=== PATIENT | female | born 1985 | race Caucasian/White ===

== ENCOUNTER 2017-03-07 10:18 | Emergency (ER) | payer OTHER ==
[2017-03-07 13:18] LABS: URINE BLOOD (Dip) POC Negative (NEGATIVE); URINE GLUCOSE (Dip) POC Negative (NEGATIVE); URINE KETONES (Dip) POC Negative (NEGATIVE); URINE LEUKOCYTE EST (Dip) POC 2+ (NEGATIVE); URINE NITRITE (Dip) POC Negative (NEGATIVE); URINE TOTAL PROTEIN POC Negative (NEGATIVE)
[2017-03-07 14:57] LABS: ADD UMIC YES; UR ASCORBIC ACID NEGATIVE (NEGATIVE); UR BACTERIA FEW /HPF (NONE SEEN); UR BILIRUBIN (Dip) NEGATIVE (NEGATIVE); UR BLOOD (Dip) NEGATIVE (NEGATIVE); UR CLARITY SLIGHTLY CLOUDY (CLEAR); UR COLOR YELLOW (YELLOW); UR GLUCOSE (Dip) NEGATIVE (NEGATIVE); UR KETONES (Dip) NEGATIVE (NEGATIVE); UR LEUKOCYTE ESTERASE (Dip) 3+ Leu/ul (NEGATIVE); UR MUCUS FEW /HPF (NONE SEEN); UR NITRITE (Dip) NEGATIVE (NEGATIVE); UR RBC 3 /HPF (0-5); UR SPECIFIC GRAVITY (Dip) 1.012 (1.003-1.030); UR SQUAMOUS EPITHELIAL CELL FEW /HPF (FEW); UR TOTAL PROTEIN (Dip) NEGATIVE (NEGATIVE); UR UROBILINOGEN (Dip) NEGATIVE (NEGATIVE); UR WBC 12 /HPF (0-5)
== END 2017-03-07 15:20 | disposition home or self-care (01) ==
LOC: FTE 10:18
DX: O23.41 Unspecified infection of urinary tract in pregnancy, first trimester (principal); R30.0 Dysuria; Z3A.01 Less than 8 weeks gestation of pregnancy
CPT/HCPCS: 81001; 81003; 87086; 99283

== ENCOUNTER 2017-05-10 11:20 | Emergency (ER) | payer OTHER ==
[2017-05-10] MEDS: ACETAMINOPHEN 500 MG TAB PO (12:56)
[2017-05-10 13:21] LABS: ADD UMIC NO; UR ASCORBIC ACID NEGATIVE (NEGATIVE); UR BILIRUBIN (Dip) NEGATIVE (NEGATIVE); UR BLOOD (Dip) NEGATIVE (NEGATIVE); UR CLARITY CLEAR (CLEAR); UR COLOR STRAW (YELLOW); UR GLUCOSE (Dip) NEGATIVE (NEGATIVE); UR KETONES (Dip) NEGATIVE (NEGATIVE); UR LEUKOCYTE ESTERASE (Dip) NEGATIVE Leu/ul (NEGATIVE); UR NITRITE (Dip) NEGATIVE (NEGATIVE); UR SPECIFIC GRAVITY (Dip) 1.003 (1.003-1.030); UR TOTAL PROTEIN (Dip) NEGATIVE (NEGATIVE); UR UROBILINOGEN (Dip) NEGATIVE (NEGATIVE)
== END 2017-05-10 14:34 | disposition home or self-care (01) ==
LOC: FTE 11:20
DX: O26.892 Other specified pregnancy related conditions, second trimester (principal); R10.2 Pelvic and perineal pain
CPT/HCPCS: 76805; 81003; 99284-25

== ENCOUNTER 2017-05-19 18:19 | Emergency (ER) | payer OTHER ==
[2017-05-19] MEDS: ACETAMINOPHEN 325 MG TAB PO (21:06)
[2017-05-19 21:21] LABS: ADD MAN DIFF? NO
[2017-05-19 21:23] LABS: WHITE BLOOD COUNT 7.2 10^3/ul (4.8-10.8)
[2017-05-19 21:23] LABS: BASOPHILS % 0.6 % (0.0-2.0); EOSINOPHILS # 0.1 10^3/ul (0.0-0.5); EOSINOPHILS % 1.8 % (0.0-7.0); HEMATOCRIT 34.8 % (37.0-47.0); HEMOGLOBIN 12.5 g/dl (12.0-16.0); LYMPHOCYTES # 1.8 10^3/ul (0.8-2.9); LYMPHOCYTES % 24.9 % (15.0-51.0); MEAN CORPUSCULAR HEMOGLOBIN 32.6 pg (29.0-33.0); MEAN CORPUSCULAR HGB CONC 35.9 g/dl (32.0-37.0); MEAN CORPUSCULAR VOLUME 90.9 fl (82.0-101.0); MEAN PLATELET VOLUME 10.2 fl (7.4-10.4); MONOCYTE # 0.5 10^3/ul (0.3-0.9); MONOCYTES % 7.2 % (0.0-11.0); NEUTROPHIL # 4.6 10^3/ul (1.6-7.5); NEUTROPHILS % 64.5 % (39.0-77.0); PLATELET COUNT 175 10^3/UL (140-415); RED BLOOD COUNT 3.83 10^6/ul (4.20-5.40); RED CELL DISTRIBUTION WIDTH 12.8 % (11.5-14.5)
[2017-05-19 21:27] LABS: ADD UMIC NO; UR ASCORBIC ACID NEGATIVE (NEGATIVE); UR BILIRUBIN (Dip) NEGATIVE (NEGATIVE); UR BLOOD (Dip) NEGATIVE (NEGATIVE); UR CLARITY CLEAR (CLEAR); UR COLOR STRAW (YELLOW); UR GLUCOSE (Dip) NEGATIVE (NEGATIVE); UR KETONES (Dip) NEGATIVE (NEGATIVE); UR LEUKOCYTE ESTERASE (Dip) NEGATIVE Leu/ul (NEGATIVE); UR NITRITE (Dip) NEGATIVE (NEGATIVE); UR SPECIFIC GRAVITY (Dip) 1.006 (1.003-1.030); UR TOTAL PROTEIN (Dip) NEGATIVE (NEGATIVE); UR UROBILINOGEN (Dip) NEGATIVE (NEGATIVE)
[2017-05-19 21:52] LABS: ALANINE AMINOTRANSFERASE 27 IU/L (13-69); ALBUMIN 3.9 g/dl (3.3-4.9); ALBUMIN/GLOBULIN RATIO 1.25; ALKALINE PHOSPHATASE 45 IU/L (42-121); ANION GAP 15 (8-16); ASPARTATE AMINO TRANSFERASE 19 IU/L (15-46); BILIRUBIN,INDIRECT 0.1 mg/dl (0-1.1); BILIRUBIN,TOTAL 0.1 mg/dl (0.2-1.3); BLOOD UREA NITROGEN 8 mg/dl (7-20); CARBON DIOXIDE 25 mmol/L (21-31); CHLORIDE 105 mmol/L (97-110); CREATININE 0.52 mg/dl (0.44-1.00); GLUCOSE 104 mg/dl (70-220); LIPASE 84 U/L (23-300); POTASSIUM 3.6 mmol/L (3.5-5.1); SODIUM 141 mmol/L (135-144)
== END 2017-05-19 23:11 | disposition home or self-care (01) ==
LOC: FTE 18:19
DX: O30.002 Twin pregnancy, unspecified number of placenta and unspecified number of amniotic sacs, second trimester (principal); O44.02 Complete placenta previa NOS or without hemorrhage, second trimester; R10.2 Pelvic and perineal pain; Z3A.17 17 weeks gestation of pregnancy
CPT/HCPCS: 36415; 76805; 80053; 81003; 83690; 84702; 85025; 86900; 86901; 99284-25

== ENCOUNTER 2017-06-08 10:46 | Emergency (ER) | payer OTHER ==
[2017-06-08 12:31] LABS: ADD MAN DIFF? NO
[2017-06-08 12:33] LABS: WHITE BLOOD COUNT 7.8 10^3/ul (4.8-10.8)
[2017-06-08 12:33] LABS: BASOPHILS % 0.3 % (0.0-2.0); EOSINOPHILS # 0.1 10^3/ul (0.0-0.5); EOSINOPHILS % 1.7 % (0.0-7.0); HEMATOCRIT 32.6 % (37.0-47.0); HEMOGLOBIN 11.4 g/dl (12.0-16.0); LYMPHOCYTES # 1.2 10^3/ul (0.8-2.9); LYMPHOCYTES % 15.5 % (15.0-51.0); MEAN CORPUSCULAR HEMOGLOBIN 32.4 pg (29.0-33.0); MEAN CORPUSCULAR VOLUME 92.6 fl (82.0-101.0); MEAN PLATELET VOLUME 10.8 fl (7.4-10.4); MONOCYTE # 0.5 10^3/ul (0.3-0.9); MONOCYTES % 6.8 % (0.0-11.0); NEUTROPHIL # 5.8 10^3/ul (1.6-7.5); NEUTROPHILS % 74.4 % (39.0-77.0); PLATELET COUNT 174 10^3/UL (140-415); RED BLOOD COUNT 3.52 10^6/ul (4.20-5.40); RED CELL DISTRIBUTION WIDTH 13.4 % (11.5-14.5)
[2017-06-08 12:42] LABS: ADD UMIC NO; UR ASCORBIC ACID NEGATIVE (NEGATIVE); UR BILIRUBIN (Dip) NEGATIVE (NEGATIVE); UR BLOOD (Dip) NEGATIVE (NEGATIVE); UR CLARITY CLEAR (CLEAR); UR COLOR STRAW (YELLOW); UR GLUCOSE (Dip) 1+ mg/dL (NEGATIVE); UR KETONES (Dip) NEGATIVE (NEGATIVE); UR LEUKOCYTE ESTERASE (Dip) NEGATIVE Leu/ul (NEGATIVE); UR NITRITE (Dip) NEGATIVE (NEGATIVE); UR SPECIFIC GRAVITY (Dip) 1.004 (1.003-1.030); UR TOTAL PROTEIN (Dip) NEGATIVE (NEGATIVE); UR UROBILINOGEN (Dip) NEGATIVE (NEGATIVE)
== END 2017-06-08 13:50 | disposition home or self-care (01) ==
LOC: E/R 10:46
DX: O30.002 Twin pregnancy, unspecified number of placenta and unspecified number of amniotic sacs, second trimester (principal); N89.8 Other specified noninflammatory disorders of vagina; R10.2 Pelvic and perineal pain; Z3A.19 19 weeks gestation of pregnancy
CPT/HCPCS: 36415; 76805; 81003; 84702; 85025; 86900; 86901; 99284-25

== ENCOUNTER 2017-06-21 17:33 | Emergency (ER) | payer OTHER ==
[2017-06-21] MEDS: DIPHTH/TET/ACEL PERTUSS (ADULT) 0.5 ML VIAL IM* (18:54)
== END 2017-06-21 19:49 | disposition home or self-care (01) ==
LOC: FTE 17:33
DX: O9A.212 Injury, poisoning and certain other consequences of external causes complicating pregnancy, second trimester (principal); S61.216A Laceration without foreign body of right little finger without damage to nail, initial encounter; W23.0XXA Caught, crushed, jammed, or pinched between moving objects, initial encounter; Y92.9 Unspecified place or not applicable; Z23 Encounter for immunization; Z3A.20 20 weeks gestation of pregnancy
CPT/HCPCS: 29130; 90471; 90715; 99283-25

== ENCOUNTER 2017-09-04 05:18 | Inpatient (IN) | payer OTHER ==
[2017-09-04 06:37] LABS: ADD MAN DIFF? NO
[2017-09-04] MEDS: LACTATED RINGER'S 1,000 ML IV ×3 (06:43→19:08)
[2017-09-04 06:50] LABS: BASOPHIL # 0.1 10^3/ul (0.0-0.1); BASOPHILS % 0.4 % (0.0-2.0); EOSINOPHILS % 0.2 % (0.0-7.0); HEMATOCRIT 38.1 % (37.0-47.0); HEMOGLOBIN 13.5 g/dl (12.0-16.0); LYMPHOCYTES # 0.8 10^3/ul (0.8-2.9); MEAN CORPUSCULAR HEMOGLOBIN 33.8 pg (29.0-33.0); MEAN CORPUSCULAR HGB CONC 35.4 g/dl (32.0-37.0); MEAN CORPUSCULAR VOLUME 95.5 fl (82.0-101.0); MONOCYTE # 0.7 10^3/ul (0.3-0.9); MONOCYTES % 4.5 % (0.0-11.0); NEUTROPHIL # 13.1 10^3/ul (1.6-7.5); NEUTROPHILS % 87.6 % (39.0-77.0); PLATELET COUNT 149 10^3/UL (140-415); RED BLOOD COUNT 3.99 10^6/ul (4.20-5.40); RED CELL DISTRIBUTION WIDTH 13.2 % (11.5-14.5)
[2017-09-04] MEDS ORDERED: ACETAMINOPHEN 325 MG TAB PO (07:00)
[2017-09-04 07:07] LABS: INR 0.97
[2017-09-04 07:15] LABS: PARTIAL THROMBOPLASTIN TIME 23.9 Sec (25.0-35.0)
[2017-09-04 08:00] LABS: ADD UMIC YES; UR AMORPHOUS CRYSTAL FEW /HPF (NONE SEEN); UR ASCORBIC ACID NEGATIVE (NEGATIVE); UR BACTERIA FEW /HPF (NONE SEEN); UR BILIRUBIN (Dip) NEGATIVE (NEGATIVE); UR BLOOD (Dip) NEGATIVE (NEGATIVE); UR CLARITY CLOUDY (CLEAR); UR COLOR YELLOW (YELLOW); UR GLUCOSE (Dip) 1+ mg/dL (NEGATIVE); UR KETONES (Dip) NEGATIVE (NEGATIVE); UR LEUKOCYTE ESTERASE (Dip) NEGATIVE Leu/ul (NEGATIVE); UR MUCUS FEW /HPF (NONE SEEN); UR NITRITE (Dip) NEGATIVE (NEGATIVE); UR RBC 1 /HPF (0-5); UR SPECIFIC GRAVITY (Dip) 1.016 (1.003-1.030); UR TOTAL PROTEIN (Dip) NEGATIVE (NEGATIVE); UR UROBILINOGEN (Dip) NEGATIVE (NEGATIVE); UR WBC 3 /HPF (0-5)
[2017-09-04 08:08] LABS: ALANINE AMINOTRANSFERASE 17 IU/L (13-69); ALBUMIN 3.7 g/dl (3.3-4.9); ALBUMIN/GLOBULIN RATIO 1.23; ALKALINE PHOSPHATASE 125 IU/L (42-121); ANION GAP 14 (8-16); ASPARTATE AMINO TRANSFERASE 22 IU/L (15-46); BILIRUBIN,INDIRECT 0.4 mg/dl (0-1.1); BILIRUBIN,TOTAL 0.4 mg/dl (0.2-1.3); BLOOD UREA NITROGEN 10 mg/dl (7-20); CALCIUM 8.9 mg/dl (8.4-10.2); CARBON DIOXIDE 21 mmol/L (21-31); CHLORIDE 106 mmol/L (97-110); CREATININE 0.42 mg/dl (0.44-1.00); GLUCOSE 108 mg/dl (70-220); POTASSIUM 3.5 mmol/L (3.5-5.1); SODIUM 137 mmol/L (135-144); TOTAL PROTEIN 6.7 g/dl (6.1-8.1)
[2017-09-04] MEDS: BETAMET NA PHOS/AC(6 MG/ML) 5ML INJ IM (08:28)
[2017-09-04] MEDS: MAGNESIUM SULFATE 4 GM/100 ML 100 ML IV (08:29)
[2017-09-04] MEDS: MAGNESIUM SULFATE 20 GM/500 ML 500 ML IV ×2 (08:53→19:15)
[2017-09-04 08:58] LABS: AMPHETAMINE/METHAMPHETAMINE Positive (NEGATIVE); BARBITURATES Negative (NEGATIVE); BENZODIAZEPINES Negative (NEGATIVE); CANNABINOIDS Negative (NEGATIVE); COCAINE Negative (NEGATIVE); OPIATES Negative (NEGATIVE)
[2017-09-04] MEDS: AL HYDROX/MG HYDROX/SIMETH 30 ML CUP PO (14:30)
[2017-09-04] MEDS: PRENATAL VITAMIN PO (17:11)
[2017-09-04] MEDS: FERROUS SULFATE (EC) 325 MG TAB PO (17:12)
[2017-09-04 17:51] LABS: RAPID PLASMA REAGIN NONREACTIVE (NR)
[2017-09-04] MEDS: TERBUTALINE 1 MG/ML INJ SC (19:30)
[2017-09-04 19:34] LABS: MAGNESIUM 4.8 mg/dl (1.7-2.5)
[2017-09-05] MEDS: MAGNESIUM SULFATE 20 GM/500 ML 500 ML IV ×3 (04:13→22:36)
[2017-09-05 07:31] LABS: MAGNESIUM 5.1 mg/dl (1.7-2.5)
[2017-09-05] MEDS: LACTATED RINGER'S 1,000 ML IV ×2 (08:03→20:39)
[2017-09-05] MEDS: BETAMET NA PHOS/AC(6 MG/ML) 5ML INJ IM (08:24)
[2017-09-05] MEDS ORDERED: ONDANSETRON 4 MG INJ IV (08:30)
[2017-09-05] MEDS: FERROUS SULFATE (EC) 325 MG TAB PO (09:04)
[2017-09-05] MEDS: PRENATAL VITAMIN PO (09:04)
[2017-09-05 13:57] LABS: MAGNESIUM 5.1 mg/dl (1.7-2.5)
[2017-09-06 06:40] LABS: MAGNESIUM 5.3 mg/dl (1.7-2.5)
[2017-09-06] MEDS: PRENATAL VITAMIN PO (09:00)
[2017-09-06] MEDS: LACTATED RINGER'S 1,000 ML IV (09:00)
[2017-09-06] MEDS: FERROUS SULFATE (EC) 325 MG TAB PO (09:00)
== END 2017-09-06 15:15 | disposition home or self-care (01) | DRG 780 ==
LOC: OBT 05:18 → L-D 05:20 → OBT 07:00 → L-D 07:00
DX: O47.03 False labor before 37 completed weeks of gestation, third trimester (principal); O30.003 Twin pregnancy, unspecified number of placenta and unspecified number of amniotic sacs, third trimester; Z3A.31 31 weeks gestation of pregnancy
CPT/HCPCS: 76815; 76817; 76818; 80053; 80307; 81001; 83735; 85025; 85610; 85730; 86592; 86850; 86900; 86901; 87081; 87086

== ENCOUNTER 2017-09-27 23:45 | Outpatient (CLI) | payer OTHER ==
[2017-09-28 01:47] LABS: ADD UMIC NO; UR ASCORBIC ACID NEGATIVE (NEGATIVE); UR BILIRUBIN (Dip) NEGATIVE (NEGATIVE); UR BLOOD (Dip) NEGATIVE (NEGATIVE); UR CLARITY CLEAR (CLEAR); UR COLOR YELLOW (YELLOW); UR GLUCOSE (Dip) NEGATIVE (NEGATIVE); UR KETONES (Dip) NEGATIVE (NEGATIVE); UR LEUKOCYTE ESTERASE (Dip) NEGATIVE Leu/ul (NEGATIVE); UR NITRITE (Dip) NEGATIVE (NEGATIVE); UR SPECIFIC GRAVITY (Dip) 1.013 (1.003-1.030); UR TOTAL PROTEIN (Dip) NEGATIVE (NEGATIVE); UR UROBILINOGEN (Dip) NEGATIVE (NEGATIVE)
[2017-09-28 02:34] LABS: AMPHETAMINE/METHAMPHETAMINE Negative (NEGATIVE); BARBITURATES Negative (NEGATIVE); BENZODIAZEPINES Negative (NEGATIVE); CANNABINOIDS Negative (NEGATIVE); COCAINE Negative (NEGATIVE); OPIATES Negative (NEGATIVE)
== END 2017-09-28 03:01 | disposition home or self-care (01) ==
LOC: OBT 23:45 → L-D 23:45 → OBT 09-28 03:01
DX: O62.9 Abnormality of forces of labor, unspecified (principal); Z3A.35 35 weeks gestation of pregnancy
CPT/HCPCS: 76817; 76818; 80307; 81003

== ENCOUNTER 2017-10-04 11:35 | Outpatient (CLI) | payer OTHER ==
[2017-10-04] MEDS: LACTATED RINGER'S 1,000 ML IV (13:28)
== END 2017-10-04 15:30 | disposition home or self-care (01) ==
LOC: OBT 11:35 → L-D 11:35 → OBT 15:30
DX: O62.9 Abnormality of forces of labor, unspecified (principal); Z3A.35 35 weeks gestation of pregnancy
CPT/HCPCS: 36415; 76818; 96360; 96361

== ENCOUNTER 2017-10-11 08:37 | Inpatient (IN) | payer OTHER ==
[~2017-10-11 08:37] MED LIST: EPHEDrine SULFATE 50 MG/5 ML SYG; OXYTOCIN 30 UNITS/LR 500 ML BAG IV
[2017-10-11] MEDS ORDERED: MISOPROSTOL 200 MCG TAB PR (13:00)
[2017-10-11] MEDS ORDERED: OXYTOCIN 30 UNITS/LR 500 ML IV (13:00)
[2017-10-11] MEDS ORDERED: METHYLERGONOVINE 0.2 MG INJ IM (13:00)
[2017-10-11] MEDS ORDERED: CARBOPROST 250 MCG INJ IM (13:00)
[2017-10-11] MEDS: LACTATED RINGER'S 1,000 ML IV ×3 (13:13→21:03)
[2017-10-11 14:57] LABS: ADD MAN DIFF? NO
[2017-10-11 15:01] LABS: BASOPHILS % 0.4 % (0.0-2.0); EOSINOPHILS # 0.1 10^3/ul (0.0-0.5); EOSINOPHILS % 0.9 % (0.0-7.0); HEMATOCRIT 38.2 % (37.0-47.0); HEMOGLOBIN 13.2 g/dl (12.0-16.0); LYMPHOCYTES # 1.3 10^3/ul (0.8-2.9); LYMPHOCYTES % 16.4 % (15.0-51.0); MEAN CORPUSCULAR HEMOGLOBIN 33.3 pg (29.0-33.0); MEAN CORPUSCULAR HGB CONC 34.6 g/dl (32.0-37.0); MEAN CORPUSCULAR VOLUME 96.5 fl (82.0-101.0); MEAN PLATELET VOLUME 11.6 fl (7.4-10.4); MONOCYTE # 0.6 10^3/ul (0.3-0.9); MONOCYTES % 7.4 % (0.0-11.0); NEUTROPHIL # 5.9 10^3/ul (1.6-7.5); NEUTROPHILS % 73.8 % (39.0-77.0); PLATELET COUNT 143 10^3/UL (140-415); RED BLOOD COUNT 3.96 10^6/ul (4.20-5.40); RED CELL DISTRIBUTION WIDTH 13.2 % (11.5-14.5)
[2017-10-11 15:19] LABS: INR 0.96; PROTIME 12.9 Sec (11.9-14.9)
[2017-10-11] MEDS: METOCLOPRAMIDE 10 MG INJ IV (21:03)
[2017-10-11] MEDS: ONDANSETRON 4 MG INJ IV (21:03)
[2017-10-11] MEDS ORDERED: morphine SULFATE/PF (10 MG/10 ML) INJ (22:14)
[2017-10-11] MEDS ORDERED: PHENYLephrine (100 MCG/ML) 5ML SYG ×3 (22:28→23:21)
[2017-10-11] MEDS ORDERED: BUPIVACAINE 0.75%/DEXT (SPINAL) 2 ML INJ (22:28)
[2017-10-12] MEDS: OXYTOCIN 30 UNITS/LR 500 ML IV ×2 (00:02→03:46)
[2017-10-12] MEDS: DEXTROSE 5%-LR 1,000 ML IV ×3 (01:03→13:22)
[2017-10-12] MEDS: CEFAZOLIN 2 GM/50 ML (PMX) 50 ML IV (01:21)
[2017-10-12] MEDS ORDERED: METHYLERGONOVINE 0.2 MG TAB PO (01:30)
[2017-10-12] MEDS ORDERED: LANOLIN 7 GM TUBE TOP (01:30)
[2017-10-12] MEDS ORDERED: MISOPROSTOL 200 MCG TAB PR (01:30)
[2017-10-12] MEDS ORDERED: METHYLERGONOVINE 0.2 MG INJ IM (01:30)
[2017-10-12] MEDS ORDERED: OXYTOCIN 30 UNITS/LR 500 ML IV (01:30)
[2017-10-12] MEDS ORDERED: CARBOPROST 250 MCG INJ IM (01:30)
[2017-10-12] MEDS: KETOROLAC 30 MG INJ IV ×3 (02:41→22:56)
[2017-10-12] MEDS: SENNA/DOCUSATE NA (8.6MG/50MG) TAB PO ×2 (09:08→22:56)
[2017-10-12 14:16] LABS: AMPHETAMINE/METHAMPHETAMINE Negative (NEGATIVE); BARBITURATES Negative (NEGATIVE); BENZODIAZEPINES Negative (NEGATIVE); CANNABINOIDS Negative (NEGATIVE); COCAINE Negative (NEGATIVE); OPIATES Negative (NEGATIVE)
[2017-10-12] MEDS ORDERED: IBUPROFEN 800 MG TAB PO (22:00)
[2017-10-12 22:24] LABS: RAPID PLASMA REAGIN NONREACTIVE (NR)
[2017-10-13] MEDS: DEXTROSE 5%-LR 1,000 ML IV ×3 (01:03→17:03)
[2017-10-13 07:51] LABS: ADD MAN DIFF? NO
[2017-10-13 07:57] LABS: BASOPHILS % 0.3 % (0.0-2.0); EOSINOPHILS # 0.1 10^3/ul (0.0-0.5); EOSINOPHILS % 1.5 % (0.0-7.0); HEMATOCRIT 33.6 % (37.0-47.0); HEMOGLOBIN 11.6 g/dl (12.0-16.0); LYMPHOCYTES # 1.5 10^3/ul (0.8-2.9); LYMPHOCYTES % 16.6 % (15.0-51.0); MEAN CORPUSCULAR HEMOGLOBIN 33.6 pg (29.0-33.0); MEAN CORPUSCULAR HGB CONC 34.5 g/dl (32.0-37.0); MEAN CORPUSCULAR VOLUME 97.4 fl (82.0-101.0); MEAN PLATELET VOLUME 11.7 fl (7.4-10.4); MONOCYTE # 0.7 10^3/ul (0.3-0.9); MONOCYTES % 7.7 % (0.0-11.0); NEUTROPHIL # 6.4 10^3/ul (1.6-7.5); NEUTROPHILS % 73.2 % (39.0-77.0); PLATELET COUNT 140 10^3/UL (140-415); RED BLOOD COUNT 3.45 10^6/ul (4.20-5.40); RED CELL DISTRIBUTION WIDTH 13.4 % (11.5-14.5)
[2017-10-13 07:57] LABS: WHITE BLOOD COUNT 8.8 10^3/ul (4.8-10.8)
[2017-10-13] MEDS: SENNA/DOCUSATE NA (8.6MG/50MG) TAB PO ×2 (09:47→20:28)
[2017-10-13] MEDS: HYDROCODONE/APAP (5/325) TAB PO ×2 (10:08→20:28)
[2017-10-13] MEDS ORDERED: HYDROCODONE/APAP (5/325) TAB PO (20:00)
[2017-10-14] MEDS: HYDROCODONE/APAP (5/325) TAB PO ×3 (00:29→15:12)
[2017-10-14] MEDS: DEXTROSE 5%-LR 1,000 ML IV (01:03)
[2017-10-14] MEDS: SENNA/DOCUSATE NA (8.6MG/50MG) TAB PO (08:12)
[2017-10-14] MEDS: MAGNESIUM HYDROXIDE 30ML CUP PO ×2 (10:31→15:26)
[2017-10-14 10:59] LABS: ADD UMIC YES; UR ASCORBIC ACID NEGATIVE (NEGATIVE); UR BILIRUBIN (Dip) NEGATIVE (NEGATIVE); UR BLOOD (Dip) 2+ mg/dL (NEGATIVE); UR CLARITY CLEAR (CLEAR); UR COLOR YELLOW (YELLOW); UR GLUCOSE (Dip) NEGATIVE (NEGATIVE); UR KETONES (Dip) NEGATIVE (NEGATIVE); UR LEUKOCYTE ESTERASE (Dip) NEGATIVE Leu/ul (NEGATIVE); UR MUCUS FEW /HPF (NONE SEEN); UR NITRITE (Dip) NEGATIVE (NEGATIVE); UR RBC 25 /HPF (0-5); UR SPECIFIC GRAVITY (Dip) 1.013 (1.003-1.030); UR SQUAMOUS EPITHELIAL CELL FEW /HPF (FEW); UR TOTAL PROTEIN (Dip) NEGATIVE (NEGATIVE); UR UROBILINOGEN (Dip) NEGATIVE (NEGATIVE); UR WBC 3 /HPF (0-5)
[2017-10-15] MEDS ORDERED: IBUPROFEN 800 MG TAB PO (06:00)
[2017-10-15] MEDS ORDERED: DIPHTH/TET/ACEL PERTUSS (ADULT) 0.5 ML VIAL IM* (09:00)
[2017-10-15] MEDS ORDERED: MEASLES,MUMPS,RUBELLA VACCINE INJ SC* (09:00)
== END 2017-10-14 16:56 | disposition home or self-care (01) | DRG 766 ==
LOC: OBT 08:37 → PP1 10-12 02:57 → L-D 08:37 → OBT 09:40 → L-D 09:40
PROC: 10D00Z1 Extraction of Products of Conception, Low, Open Approach (ICD-10-PCS; principal; 2017-10-11 22:00)
DX: O30.043 Twin pregnancy, dichorionic/diamniotic, third trimester (principal); Z3A.36 36 weeks gestation of pregnancy; Z37.2 Twins, both liveborn
CPT/HCPCS: 80307; 81001; 85025; 85610; 85730; 86592; 86850; 86900; 86901; 87086; 88307; 99464